=== PATIENT | female | born 1985 | race Asian ===

== ENCOUNTER → 2018-03-31 13:59 | Outpatient (CLI) | payer OTHER, MEDICAID, SELFPAY | PROVIDERS: PCP Family Medicine; Visit Provider Family Medicine | DX: Z34.91 Encounter for supervision of normal pregnancy, unspecified, first trimester (principal) ==

== ENCOUNTER → 2018-04-23 17:59 | Outpatient (CLI) | payer OTHER, MEDICAID, SELFPAY ==
[2018-04-23 20:53] LABS: Urine Chlamydia NOT DETECTED
[2018-04-23 20:54] LABS: Urine N gonorrhoeae NOT DETECTED
== END ==
PROVIDERS: PCP Family Medicine; Visit Provider Family Medicine
DX: Z11.3 Encounter for screening for infections with a predominantly sexual mode of transmission (principal); Z11.8 Encounter for screening for other infectious and parasitic diseases; Z3A.10 10 weeks gestation of pregnancy
CPT/HCPCS: 87491; 87591

== ENCOUNTER → 2018-04-27 10:37 | Outpatient (CLI) | payer OTHER, MEDICAID, SELFPAY ==
[2018-04-27 11:01] LABS: Add Manual Diff / Slide Review NO; Basophils Percent Auto 0.9 % (0-2); Eosinophils Percent Auto 0.9 % (2-4); Hematocrit 38.6 % (36-46); Hemoglobin 13.3 g/dL (12.0-16.0); Mean Corpuscular HGB Conc 34.5 % (30-36); Mean Corpuscular Hemoglobin 32.3 PG (26-34); Mean Corpuscular Volume 93.6 fL (80-100); Monocytes Percent Auto 7.6 % (3-14); Neutrophils Absolute Auto 9300 /uL (3000-5900); Neutrophils Percent Auto 81.6 % (50-75); Platelet Count 259 X10^3/uL (150-400); Red Blood Cell Count 4.13 X10^6/uL (4.0-5.2); Red Cell Distribution Width 13.7 % (11.6-14.8); White Blood Cell Count 11.4 X10^3/uL (4.5-11.0)
[2018-04-27 12:06] LABS: Hepatitis B Surface Antigen NEGATIVE s/c (NEGATIVE); Rubella Antibody IgG 35.5 IU/mL (>15)
[2018-04-27 12:24] LABS: HIV 1 and 2 Antibody NEGATIVE (NEGATIVE); Hep C Virus Ab w/Reflex Quant NEGATIVE s/c (NEGATIVE)
[2018-04-28 15:03] LABS: HSV 2 IGG AB < 0.90 index (< 0.90); HSV1IGG < 0.90 index (< 0.90)
[2018-04-30 20:52] LABS: Rapid Plasma Reagin NON-REACTIVE
== END ==
PROVIDERS: PCP Family Medicine; Visit Provider Family Medicine
DX: Z34.91 Encounter for supervision of normal pregnancy, unspecified, first trimester (principal)
CPT/HCPCS: 36415; 80055; 86695; 86696; 86703; 86787; 86803; 86850; 86900; 86901

== ENCOUNTER → 2018-06-17 11:21 | Outpatient (CLI) | payer OTHER, MEDICAID, SELFPAY ==
[2018-06-22 10:23] LABS: AFP, Serum 56.1 ng/mL; Cigarette Smoker NO; Donated Egg NOT GIVEN; Donor Egg Age NOT GIVEN; Estriol, Free 0.72 ng/mL; Inhibin A, Dimeric 207 pg/mL; Maternal Weight 133 lbs; Number of Fetuses NOT GIVEN; Previous Pregnancy Down Syndro NOT GIVEN; hCG, MoM 0.81; hCG, Serum 27.4 IU/mL
== END ==
PROVIDERS: PCP Family Medicine; Visit Provider Family Medicine
DX: Z34.02 Encounter for supervision of normal first pregnancy, second trimester (principal); Z3A.18 18 weeks gestation of pregnancy
CPT/HCPCS: 36415; 82105; 82677; 84702; 86336

== ENCOUNTER → 2018-07-02 09:03 | Outpatient (CLI) | payer OTHER, MEDICAID, SELFPAY ==
--- NOTE | 2018-07-02 09:04 | DI.US.S_ITS ---
PROCEDURE: US OB >= 14 WEEKS FETUS INDICATIONS: ANATOMIC SURVEY OUTSIDE/PRIOR DATING DATA: Last menstrual period (LMP): Unknown. LMP-based estimated date of delivery (MONY): N./A.. First dating scan (date and location): 04/23/18. Estimated date of delivery (MONY) from first dating scan: 11/25/18. TECHNIQUE: Real-time scanning was performed of the fetus, with image documentation and biometric measurements. Endovaginal scanning: No COMPARISON: [facility], , OB <= 14 WK FETUS ADD GEST, 04/23/2018, 14:35. FINDINGS: General: A single living intrauterine gestation is present. Presentation: Breech. Placenta: Placental position is posterior, without previa. Amniotic fluid index: 15.7 cm, normal range is 5-24 cm. heart rate: 131 beats per minute. Maternal cervical canal: 3.1 cm long. Normal lower limit is 2.5 cm. biometrics: Biparietal diameter: 19 weeks 5 days Head circumference: 19 weeks 2 days Abdominal circumference: 19 weeks 5 days Femur length: 19 weeks 3 days Estimated gestational age from initial scan: 19 weeks 1 day Composite gestational age from present scan: 19 weeks 3 days Estimated weight and percentile: 301 g; 72nd percentile Measurement variability for biometric dating: +/- 7 days from 14 weeks to 15 weeks 6 days gestation, +/- 10 days from 16 weeks to 21 weeks 6 days gestation, +/- 2 weeks from 22 weeks to 27 weeks 6 days gestation, +/- 3 weeks for 28 weeks gestation or later. weight reference: 4500 g or EFW >90/95% is considered macrosomia or large for gestational age. EFW <10% is small for gestational age. EFW 5% or less is considered intra-uterine growth restriction. Anatomic survey: Neuro: Ventricles are non-dilated at less than 10 mm. Cisterna magna is normal at 3-11 mm. Cerebellum is normal in size and morphology. Nuchal skin fold: Normal at less than 6 mm between 14-21 weeks gestational age. Face: Nose and lips, facial profile are normal. Spine: Not well-seen. Heart: 4-chambered heart is present, with normal ventricular outflow tracts. Diaphragm: Diaphragm is intact. Stomach: Left-sided stomach is present. Kidneys: No hydronephrosis. Normal is less than 5 mm in 2nd trimester, less than 7 mm in 3rd trimester. Cord: 3-vessel cord has orthotopic insertion. Bladder: Normal in size. Extremities: All 4 extremities identified. IMPRESSION: 1. Single living IUP with normal interval growth. 2. spine not well seen; otherwise normal anatomic survey. Dictated by: Xavier Truong [facility] Interpreted: Brandie Hamm MD on 07/02/2018 at 11:47 Approved by: Brandie Hamm M.D. on 07/02/2018 at 15:47
== END ==
PROVIDERS: PCP Family Medicine; Visit Provider Family Medicine
DX: Z34.02 Encounter for supervision of normal first pregnancy, second trimester (principal); Z3A.19 19 weeks gestation of pregnancy
CPT/HCPCS: 76811

== ENCOUNTER → 2018-08-03 11:02 | Outpatient (CLI) | payer OTHER, MEDICAID, SELFPAY ==
[2018-08-03 12:51] LABS: Hematocrit 34.6 % (36-46)
[2018-08-03 13:32] LABS: GTT (PREG) 1 Hour PP 50gm Dose 171 mg/dL (76-139)
== END ==
PROVIDERS: PCP Family Medicine; Visit Provider Family Medicine
DX: Z34.82 Encounter for supervision of other normal pregnancy, second trimester (principal); Z3A.22 22 weeks gestation of pregnancy
CPT/HCPCS: 36415; 82950; 85014; 85018

== ENCOUNTER → 2018-08-12 11:49 | Outpatient (CLI) | payer OTHER, MEDICAID, SELFPAY ==
[2018-08-12 12:40] LABS: Hemoglobin A1C% w Est Avg Glu 4.8 % (4.0-6.0)
[2018-08-12 13:31] LABS: Glucose Fasting 74 mg/dL (70-100)
[2018-08-12 14:23] LABS: Glucose 1 Hour 190 mg/dL (70-170)
[2018-08-12 15:29] LABS: Glucose 2 Hour 146 mg/dL (70-140)
[2018-08-12 15:33] LABS: Glucose Tol Interpretation INTERPRETATION
[2018-08-12 16:11] LABS: Glucose 3 Hour 88 mg/dL (70-115)
== END ==
PROVIDERS: PCP Family Medicine; Visit Provider Family Medicine
DX: O99.810 Abnormal glucose complicating pregnancy (principal)
CPT/HCPCS: 36415; 82951; 82952; 83036

== ENCOUNTER → 2018-10-12 13:48 | Outpatient (CLI) | payer OTHER, MEDICAID, SELFPAY ==
[2018-10-13 12:47] LABS: Strep Grp B PCR NEG for Grp B Strep
== END ==
PROVIDERS: PCP Family Medicine; Visit Provider Family Medicine
DX: Z34.83 Encounter for supervision of other normal pregnancy, third trimester (principal); Z3A.35 35 weeks gestation of pregnancy
CPT/HCPCS: 87653

== ENCOUNTER → 2018-11-10 14:09 | Outpatient (CLI) | payer OTHER, MEDICAID, SELFPAY ==
[2018-11-11 09:53] LABS: Strep Grp B PCR NEG for Grp B Strep
== END ==
PROVIDERS: PCP Family Medicine; Visit Provider Family Medicine
DX: Z34.83 Encounter for supervision of other normal pregnancy, third trimester (principal); Z3A.37 37 weeks gestation of pregnancy
CPT/HCPCS: 87653

== ENCOUNTER 2018-11-14 13:11 | Inpatient (IN) | payer OTHER, MEDICAID, SELFPAY ==
[2018-11-14] MEDS: LACTATED RINGERS 1,000 ML 1000 ML IV (15:35)
[2018-11-14 16:33] LABS: Add Manual Diff / Slide Review NO; Basophils Absolute Auto 200 /uL (0-100); Basophils Percent Auto 1.4 % (0-2); Eosinophils Absolute Auto 100 /uL (0-450); Eosinophils Percent Auto 0.6 % (2-4); Hematocrit 37.2 % (36-46); Hemoglobin 12.2 g/dL (12.0-16.0); Lymphocytes Absolute Auto 1300 /uL (1100-4500); Lymphocytes Percent Auto 9.4 % (25-40); Mean Corpuscular HGB Conc 32.7 % (30-36); Mean Corpuscular Hemoglobin 29.1 PG (26-34); Mean Corpuscular Volume 88.9 fL (80-100); Monocytes Absolute Auto 1000 /uL (0-900); Monocytes Percent Auto 6.7 % (3-14); Neutrophils Absolute Auto 11700 /uL (1500-7000); Neutrophils Percent Auto 81.9 % (50-75); Platelet Count 253 X10^3/uL (150-400); Red Blood Cell Count 4.18 X10^6/uL (4.0-5.2); White Blood Cell Count 14.3 X10^3/uL (4.5-11.0)
[2018-11-14] MEDS: LACTATED RINGERS 1,000 ML 100 ML IV (16:40)
[2018-11-14 16:55] VITALS: BP 115/65
--- NOTE | 2018-11-14 17:17 | PM.HP.1 ---
History of Present Illness Date Patient Seen: 11/14/18 Time Patient Seen: 17:17 Chief complaint: obs Narrative: 33-year-old female G4 One at 38 and 3/7 weeks gestational age with an estimated due date of 11/25/2018 consistent with early ultrasound patient presents in labor. She says her contractions started in the middle of last evening. Those contractions have been gradually getting worse throughout the day. Saw her initially had about 1:00 a.m.. And she was charlie intermittently her cervix was 3 cm dilated. She was sent to the [facility] for evaluation. Over the next hour her contractions continued to be more aggressive in power and discomfort and she changed her cervix and she was admitted to the center. Patient states that she has been feeling well. She has no complaints of headache dizziness lightheadedness. No vaginal bleeding. No discharge. She has not had any loss of fluid. care started at 9 weeks gestational age. She had routine care and follow-up. She had an elevated glucose screen at 171 and 2 hour 190. She maintained her weight at approximately 25 lb during . Beginning weight 125 ending weight 155. She monitored her diet throughout the . She was not on medications. She took vitamins. No other complications during . She had a 20 week ultrasound with a normal anatomy scan. Her labs showed blood type O-positive antibody screen negative hematocrit 38.6 and 13.3 platelet count 259 VDRL nonreactive hepatitis-B surface antigen negative chlamydia negative gonorrhea negative rubella immune varicella immune HSV 1 and HSV 2-2nd trimester screening negative repeat hemoglobin hematocrit 34.6 and 12. GBS test was negative hemoglobin A1c was 4.8. Patient's past medical history of migraine headaches exercise-induced asthma and history of D&C. Patient History Medical History (Updated 04/21/18 @ 20:38 by Nneka Castro) Anxiety (Chronic) Depression (Chronic) Headache (Chronic) Migraines (Chronic) Surgical History (Updated 04/21/18 @ 20:38 by Nneka Castro) Anesthesia (Resolved) Status post dilation and curettage Social History Smoking Status: Current every day smoker Family & Social History Tobacco & Substance use: Tobacco type cigarettes Smoking Status Current every day smoker Smoking packs per day 0.5 Meds Home Medications Medication Instructions Recorded Confirmed Type Breast Pump - Double Electric ea #1 07/23/17 12/24/17 Rx norethindrone (contraceptive) 0.35 mg PO QDAY #1 pac 08/22/17 12/24/17 Rx [Ortho Micronor] citalopram 20 mg PO QDAY #30 tab 11/19/17 12/24/17 Rx Allergies Allergy/AdvReac Type Severity Reaction Status Date / Time No Known Drug Allergies Allergy Verified 12/24/17 11:49 Exam Vital Signs (past 8 hours): - 11/14/18 16:55 Blood Pressure 115/65 Narrative Exam Narrative: . General: Alert no apparent distress. Affect is appropriate. Charlie it is uncomfortable. HEENT: Neck is supple without lymphadenopathy pupils equal round and reactive. Cardio: S1-S2 regular rate and rhythm. Respiratory: Lungs clear to auscultation. Abdomen: Gravid. Extremities: Normal deep tendon reflexes trace edema. [place]: Contractions every 1-2 minutes lasting 60 seconds heart tones: Category 1 with marked variability Objective Labs Result Diagrams: 11/14/18 15:30 Labs: Laboratory Results - last 24 hr 11/14/18 15:30 WBC 14.3 H RBC 4.18 Hgb 12.2 Hct 37.2 MCV 88.9 MCH 29.1 MCHC 32.7 RDW 14.0 Plt Count 253 Neut % (Auto) 81.9 H Lymph % (Auto) 9.4 L [place] % (Auto) 6.7 Eos % (Auto) 0.6 L Baso % (Auto) 1.4 Neut # (Auto) 76981 H Lymph # (Auto) 1300 [place] # (Auto) 1000 H Eos # (Auto) 100 Baso # (Auto) 200 H Assessment & Plan Assessment & Plan narrative: 33-year-old female G for para 1 38 and 3 7 weeks consistent with early ultrasound. On examination currently she is approximately 9 cm. A ruptured her membranes with clear copious amounts of fluid. She is charlie adequately and has epidural anesthesia. She has it been admitted to the center history was reviewed. Consent was obtained. Risks benefits and common complications of process reviewed. Admitting orders were also signed and treat in the computer.
--- NOTE | 2018-11-14 17:25 | P.HP_ITS ---
History of Present Illness Date Patient Seen: 11/14/18 Time Patient Seen: 17:17 Chief complaint: obs Narrative: 33-year-old female G4 One at 38 and 3/7 weeks gestational age with an estimated due date of 11/25/2018 consistent with early ultrasound patient presents in labor. She says her c ontractions started in the middle of last evening. Those contractions have been gradually getting worse throughout the day. Saw her initially had about 1:00 a.m.. And she was charlie intermittently her cervix was 3 cm dilated. She was sent to the [facility] for evaluation. Over the next hour her contractions continued to be more aggressive in power and discomfort and she changed her cervix and she was admitted to the center. Patient states that she has been feeling well. She has no complaints of headache dizziness lightheadedness. No vaginal bleeding. No discharge. She has not had any loss of fluid. care started at 9 weeks gestational age. She had routine care and follow-up. She had an elevated glucose screen at 171 and 2 hour 190. She maintained her weight at approximately 25 lb during . Beginning weight 125 ending weight 155. She monitored her diet throughout the . She was not on medications. She took vitamins. No other complications during . She had a 20 week ultrasound with a normal anatomy scan. Her pren atal labs showed blood type O-positive antibody screen negative hematocrit 38.6 and 13.3 platelet count 259 VDRL nonreactive hepatitis-B surface antigen negative chlamydia negative gonorrhea negative rubella immune varicella immune HSV 1 and HSV 2-2nd trimester screening negative repeat hemoglobin hematocrit 34.6 and 12. GBS test was negative hemoglobin A1c was 4.8. Patient's past medical history of migraine headaches exercise-induced asthma and history of D&C. Patient History Medical History (Updated 04/21/18 @ 20:38 by Nneka Castro) Anxiety (Chronic) Depression (Chronic) Headache (Chronic) Migraines (Chronic) Surgical History (Updated 04/21/18 @ 20:38 by Nneka Castro) Anesthesia (Resolved) Status post dilation and curettage Social History Smoking Status: Current every day smoker Family & Social History Tobacco & Substance use: Tobacco type cigarettes Smoking Status Current every day smoker Smoking packs per day 0.5 Meds Home Medications Medication Instructions Recorded Confirmed Type Breast Pump - Double Electric ea #1 07/23/17 12/24/17 Rx norethindrone (contraceptive) 0.35 mg PO QDAY #1 pac 08/22/17 12/24/17 Rx [Ortho Micronor] citalopram 20 mg PO QDAY #30 tab 11/19/17 12/24/17 Rx Allergies Allergy/AdvReac Type Severity Reaction Status Date / Time No Known Drug Allergies Allergy Verified 12/24/17 11:49 Exam Vital Signs (past 8 hours): - 11/14/18 16:55 Blood Pressure 115/65 Narrative Exam Narrative: . General: Alert no apparent distress. Affect is appropriate. Charlie it is uncomfortable. HEENT: Neck is supple without lymphadenopathy pupils equal round and reactive. Cardio: S1-S2 regular rate and rhythm. Respiratory: Lungs clear to auscultation. Abdomen: Gravid. Extremities: Normal deep tendon reflexes trace edema. [place]: Contractions every 1-2 minutes lasting 60 seconds heart tones: Category 1 with marked variability Objective Labs Result Diagrams: 11/14/18 15:30 Labs: Laboratory Results - last 24 hr 11/14/18 15:30 WBC 14.3 H RBC 4.18 Hgb 12.2 Hct 37.2 MCV 88.9 MCH 29.1 MCHC 32.7 RDW 14.0 Plt Count 253 Neut % (Auto) 81.9 H Lymph % (Auto) 9.4 L [place] % (Auto) 6.7 Eos % (Auto) 0.6 L Baso % (Auto) 1.4 Neut # (Auto) 65761 H Lymph # (Auto) 1300 [place] # (Auto) 1000 H Eos # (Auto) 100 Baso # (Auto) 200 H Assessment & Plan Assessment & Plan narrative: 33-year-old female G for para 1 38 and 3 7 weeks consistent with early ultrasound. On examination currently she is approximately 9 cm. A ruptured her membranes with clear copious amounts of fluid. She is charlie adequately and has epidural anesthesia. She has it been admitted to the center history was reviewed. Consent was obtained. Risks benefits and common complications of process reviewed. Admitting orders were also signed and treat in the computer.
--- NOTE | 2018-11-14 18:40 | PM.PROC.1 ---
Procedures Date/Time Date of procedure: 11/14/18 Time of procedure: 18:40 General Procedure description: Vaginal delivery Stage I of labor: Approximately 5 hours: Patient presented to labor and delivery floor in active labor. Patient's heart tracings during stage I of labor were category 1. Patient's labor time was 5:00 a.m.. Patient received no Pitocin. Hemoglobin hematocrit and platelet count were stable at the time of admission to the hospital. Patient received epidural anesthesia. Patient had good progression during this stage I of labor. And had good strength of contractions. Patient had rupture of membranes at approximately 9 cm with clear copious fluids patient was at 0+ 1 station. Patient then immediately became complete. Stage II of labor approximately 20 minutes. heart tones were reassuring. Patient pushed to deliver a viable male over intact perineum. Position of the baby was occiput anterior. Patient had a mild delay of the delivery of the shoulder as a baby had to have the shoulders rotated. Afterwards baby had spontaneous cry was vigorous. Cord was then cut clamped and transected. Stage III. Delivery of intact placenta with three-vessel cord patient was given 10 IM units of Pitocin. Mom and baby were resting comfortably. There were no tears or repair needed. Fundal massage the uterus was firm. Apgars of the were 8 and 9.
[2018-11-15 07:25] LABS: Hematocrit 31.3 % (36-46); Hemoglobin 10.7 g/dL (12.0-16.0)
--- NOTE | 2018-11-15 09:42 | P.DS_ITS ---
History of Present Illness Chief complaint: obs Narrative: 33-year-old female G4 One at 38 and 3/7 weeks gestational age with an estimated due date of 11/25/2018 consistent with early ultrasound patient presents in labor. She says her co ntractions started in the middle of last evening. Those contractions have been gradually getting worse throughout the day. Saw her initially had about 1:00 a.m.. And she was charlie intermittently her cervix was 3 cm dilated. She was sent to the [facility] for evaluation. Over the next hour her contractions continued to be more aggressive in power and discomfort and she changed her cervix and she was admitted to the center. Patient states that she has been feeling well. She has no complaints of headache dizziness lightheadedness. No vaginal bleeding. No discharge. She has not had any loss of fluid. care started at 9 weeks gestational age. She had routine care and follow-up. She had an elevated glucose screen at 171 and 2 hour 190. She maintained her weight at approximately 25 lb during . Beginning weight 125 ending weight 155. She monitored her diet throughout the . She was not on medications. She took vitamins. No other complications during . She had a 20 week ultrasound with a normal anatomy scan. Her prena maynor labs showed blood type O-positive antibody screen negative hematocrit 38.6 and 13.3 platelet count 259 VDRL nonreactive hepatitis-B surface antigen negative chlamydia negative gonorrhea negative rubella immune varicella immune HSV 1 and HSV 2-2nd trimester screening negative repeat hemoglobin hematocrit 34.6 and 12. GBS test was negative hemoglobin A1c was 4.8. Patient's past medical history of migraine headaches exercise-induced asthma and history of D&C. Discharge Providers Date of admission: 11/14/18 13:11 Discharge Date: 11/15/18 Primary care physician: Ryan Ahuja MD Consults: 11/14/18 18:49 Consult to [employer] Routine Comment: Discharge provider: Ryan Ahuja MD Summary Discharge Diagnosis: 33-year-old G4 now para 2 delivery of viable male vaginally without complications Routine care Hospital Course: Delivery vaginally a viable male infant Apgars 8 and 9. Mom had routine care. Time of discharge she was ambulating pain was well- controlled tolerating diet. Bladder and bowel function were normal. Exam Narrative Exam Narrative: General: Alert no apparent distress. Affect is appropriate. HEENT: Neck is supple without lymphadenopathy pupils equal round and reactive. Cardio: S1-S2 regular rate and rhythm. Respiratory: Lungs clear to auscultation. Abdomen: Uterus firm and at umbilicus Extremities: Normal deep tendon reflexes trace edema. Objective Labs Result Diagrams: 11/15/18 07:10 Labs: Laboratory Results - last 24 hr 11/14/18 11/14/18 11/15/18 15:30 15:30 07:10 WBC 14.3 H RBC 4.18 Hgb 12.2 10.7 L Hct 37.2 31.3 L MCV 88.9 MCH 29.1 MCHC 32.7 RDW 14.0 Plt Count 253 Neut % (Auto) 81.9 H Lymph % (Auto) 9.4 L [place] % (Auto) 6.7 Eos % (Auto) 0.6 L Baso % (Auto) 1.4 Neut # (Auto) 04437 H Lymph # (Auto) 1300 [place] # (Auto) 1000 H Eos # (Auto) 100 Baso # (Auto) 200 H Blood Type O Positive Antibody Screen Negative Discharge Plan Discharge Plan Patient Disposition: Home Discharge Med Rec/Prescriptions Prescriptions: New ibuprofen 600 mg Tablet 600 mg PO Q6HR PRN (Reason: Pain, Mild (1-3)) Qty: 30 RF: 0 docusate sodium 250 mg Capsule 250 mg PO DAILY Qty: 30 RF: 0 Prenatabs Rx 29 mg iron- 1 mg Tablet 1 tab PO DAILY Qty: 90 RF: 3 Continued Breast Pump - Double Electric Qty: 1 RF: 0 Discontinued norethindrone (contraceptive) [Ortho Micronor] 0.35 MG tablet 0.35 mg PO QDAY Qty: 1 RF: 12 citalopram 20 MG tablet 20 mg PO QDAY Qty: 30 RF: 3 Follow up/Referrals: Ryan Ahuja MD [Primary Care Provider] - Discharge Data Primary Care Provider: Ryan Ahuja Attending Provider: Ryan Ahuja Admit Date/Time: 11/14/18 13:11
[2018-11-15] MEDS: IBUPROFEN 600 MG TABLET PO (09:43)
[2018-11-15] MEDS: DOCUSATE 250 MG CAPSULE PO (09:43)
[2018-11-15] MEDS: PRENATAL VIT,CALC/IRON/FOLIC 1 TABLET 1 TAB PO (09:43)
[2018-11-15] MEDS: FERROUS GLUCONATE 324 MG TABLET PO (09:44)
[2018-11-15 16:04] VITALS: BP 115/65; PULSE 80; RESP 18; TEMP 36.6
== END 2018-11-15 18:01 | disposition home or self-care (01) | DRG 560 ==
PROVIDERS: Admitting Provider Family Medicine; PCP Family Medicine; Visit Provider Family Medicine
DX: O80 Encounter for full-term uncomplicated delivery (principal); Z37.0 Single live birth; Z3A.38 38 weeks gestation of pregnancy
CPT/HCPCS: 01967; 59050; 59409; 85014; 85018; 85025; 86850; 86900; 86901; G0379; J3010

== ENCOUNTER → 2021-09-01 09:27 | Outpatient (CLI) | payer OTHER, MEDICAID, SELFPAY | PROVIDERS: PCP Family Medicine; Visit Provider Physician Assistant | DX: N39.0 Urinary tract infection, site not specified (principal) | CPT/HCPCS: 81002; 87077; 87086; 87186 ==

== ENCOUNTER → 2024-03-24 11:59 | Outpatient (CLI) | payer OTHER, MEDICAID, SELFPAY ==
[2024-03-24 13:27] LABS: Add Manual Diff / Slide Review NO; Basophils Absolute Auto 100 /uL (0-100); Basophils Percent Auto 0.8 % (0-2); Eosinophils Absolute Auto 400 /uL (0-450); Eosinophils Percent Auto 4.5 % (2-4); Hematocrit 40.5 % (36-46); Hemoglobin 13.9 g/dL (12.0-16.0); Lymphocytes Absolute Auto 1700 /uL (1100-4500); Lymphocytes Percent Auto 21.1 % (25-40); Mean Corpuscular HGB Conc 34.3 % (30-36); Mean Corpuscular Hemoglobin 32.6 PG (26-34); Mean Corpuscular Volume 95.1 fL (80-100); Monocytes Absolute Auto 700 /uL (0-900); Monocytes Percent Auto 8.6 % (3-14); Neutrophils Absolute Auto 5200 /uL (1500-7000); Platelet Count 247 X10^3/uL (150-400); Red Blood Cell Count 4.26 X10^6/uL (4.0-5.2); Red Cell Distribution Width 13.5 % (11.6-14.8)
[2024-03-24 20:11] LABS: Alanine Aminotransferase 14 IU/L (<35); Albumin 4.6 g/dL (3.5-5.0); Albumin Globulin Ratio 1.9 (1.0-2.8); Alkaline Phosphatase 42 U/L (38-126); Aspartate Aminotransferase 18 IU/L (14-36); BUN Creatinine Ratio 11.9 (6-22); Bilirubin Total 0.6 mg/dL (0.2-1.3); Blood Urea Nitrogen 10 mg/dL (7-17); Calcium 9.4 mg/dL (8.4-10.2); Carbon Dioxide 22 mmol/L (22-32); Chloride 107 mmol/L (98-107); Estimated Glomerular Filt Rate > 60 mL/min (>60); Globulin 2.4 g/dL (1.7-4.1); Glucose 72 mg/dL (70-100); HEMOLYSIS < 15 (0-50); Potassium 4.5 mmol/L (3.4-5.1); Sodium 140 mmol/L (137-145)
[2024-03-24 20:18] LABS: HEMOLYSIS < 15 (0-50); Iron 121 ug/dL (37-170)
[2024-03-24 20:52] LABS: Percent Iron Saturation 36 % (15-50); Total Iron Binding Capacity 335 ug/dL (265-497); Transferrin 263 mg/dL (206-381)
[2024-03-24 21:15] LABS: Ferritin 18 ng/mL (6-137)
[2024-03-24 21:35] LABS: TSH w/ Reflex to FT4 1.63 uIU/mL (0.47-4.68)
== END ==
PROVIDERS: PCP Family Medicine; Referring Provider Physician Assistant; Visit Provider Physician Assistant
DX: R53.83 Other fatigue (principal); Z86.2 Personal history of diseases of the blood and blood-forming organs and certain disorders involving the immune mechanism; R23.3 Spontaneous ecchymoses
CPT/HCPCS: 36415; 80053; 82728; 83540; 83550; 84443; 85025